=== PATIENT | female | born 1970 | race African-American/Black ===

== ENCOUNTER 2017-07-29 22:11 | Emergency (ER) | payer OTHER ==
[~2017-07-29 22:11] MED LIST: ACET325T11 PO; BISA10R PR; CALTTAB5 PO; CLEM2.68 PO; FOLI1TAB PO; LAMO25TA PO; LEVO.075 PO; LORA1TAB PO; MEDR150P IM; METO25 PO; OMEP20TA PO; OXCA300T2 PO; POLY119S PO; QUEN12.5 PO; TAB-TAB PO; [UNRECOGNIZED DRUG - CODE] PO
[2017-07-29 22:15] VITALS: PULSE 96; RESP 20; TEMP 97.5; O2SAT 98
--- NOTE | 2017-07-30 00:20 | PD ---
HPI Chief Complaint: Fall Time Seen by Provider: 00:01 Travel History International Travel<30 days: No Contact w/Intl Traveler<30days: No Traveled to known affect area: No History of Present Illness HPI The patient is a 47 year old female who presents to the [facility] emergency department with a history of falling prior to arrival at her [facility]. She fell and hit her head. She has a lump on her head related to the fall. She did not have a loss of consciousness. She has had no changes in her baseline of mentation. She is nonverbal with words, however she does make sounds. She uses a wheel chair for mobility and also walks with the assistance of a gait belt. Since the accident, the patient has not had any vomiting. Otherwise, according to the caregiver at the bedside the patient has not had any recent fevers, cough or congestion, shortness of breath, abdominal pain, diarrhea, new urinary symptoms, or new neurologic symptoms. She is not on any blood thinners. [facility] Past Medical History Narrative Medical The patient's past medical history is significant for profound mental retardation, microcephaly, mild ataxic diplegia, hypothyroid disorder, gingivitis, abnormal gait, allergic rhinitis, vitamin D deficiency, tachycardia , constipation, alopecia, anemia, dwarfism, partial complex seizures, anisocoria , anemia, anxiety, cataracts. Cardiovascular Problems: Yes (TACHYCARDIA) Neurologic: Yes (mental retardation, microcephaly, dwarfism) Seizures: Yes Thyroid Disease: Yes ?: Not Past Surgical History Surgical History: Unable to Obtain Social History Alcohol Use: No Tobacco Use: No Substance Use: No Allergies-Medications (Allergen,Severity, Reaction): Coded Allergies: Sulfa (Sulfonamide Antibiotics) (Unverified Allergy, Severe, 07/29/17) hydrochlorothiazide (Unverified Allergy, Severe, 07/29/17) Uncoded Allergies: LOOP DIURETICS (Allergy, Unknown, UNKNOWN, 07/29/17) Reported Meds & Prescriptions Reported Meds & Active Scripts Active Review of Systems ROS Limitations: Speech Impaired Except as stated in HPI: all other systems reviewed are Neg General / Constitutional: No: Fever HENT: No: Congestion Respiratory: No: Cough, Shortness of Breath Gastrointestinal: No: Nausea, Vomiting, Diarrhea Physical Exam Narrative General: The patient is a mentally disabled patient, intermittently verbal on examination that is repeatedly making the same sounds. Head and Neck exam: Head is normocephalic, no palpable evidence of trauma. The patient repeatedly grabs my hands during the examination. The patient has no scalp contusion palpated. No erythema or ecchymosis. Eyes: EOMI, pupils are equal round and reactive to light. Nose: Midline septum with pink mucous membranes Mouth: Dentition unremarkable. The patient has gingival hypertrophy. Moist mucus membranes. Posterior oropharynx is not erythematous. No tonsillar hypertrophy. Uvula midline. Airway patent. Neck: No palpable lymphadenopathy. No nuchal rigidity. No thyromegaly. Cardiovascular: Regular rate and rhythm without murmurs, gallops, or rubs. Lungs: Clear to auscultation bilaterally. No wheezes, rhonchi, or rales. Abdomen: Soft, without tenderness to palpation in all 4 quadrants of the abdomen. No guarding, rebound, or rigidity. Normal bowel sounds are audible. No tenderness on palpation of McBurney's point. Extremities: No clubbing, cyanosis, or edema. 2+ pulses in all 4 extremities. No bony tenderness on palpation along the upper and lower extremities. No crepitus or step-off on examination of her extremities. She has full range of motion without pain. No pelvic tenderness on palpation, no pelvic instability. Back: No spinous process tenderness to palpation. No step-off or crepitus. No costovertebral angle tenderness to palpation. Neurologic Exam: She is at her baseline of mentation, moving all extremities equally with 5 over 5 strength. The patient repeatedly makes noises, however otherwise she is nonverbal. She is not cooperative with formal neurologic testing. She has no facial asymmetry. The patient is at her baseline according to the caregiver at the bedside. Skin Exam: No rash noted. Intact skin that is warm and dry. Data Data Last Documented VS Vital Signs Date Time Temp Pulse Resp B/P (MAP) Pulse Ox O2 Delivery O2 Flow Rate FiO2 07/29/17 22:15 97.5 [address] Brain W/O Iv Contrast(Rout) (07/30/17 00:22) Ct Cerv Spine W/O Contrast (07/30/17 00:22) MDM Medical Decision Making Medical Screen Exam Complete: Yes Emergency Medical Condition: Yes Medical Record Reviewed: Yes Differential Diagnosis Skull fracture, versus concussion, versus intracranial hemorrhage Narrative Course During the course of the patients emergency department visit, the patients history, examination, and differential diagnosis were reviewed with the patient' s caregiver. A CT scan of the head and neck was ordered. The donor support technician attempted to take the patient to CT, however the patient was uncooperative, repeatedly moving. As the patient has no visible trauma instead of starting an IV and sedating the patient for imaging as it is low likelihood that the patient has any intracranial injury given the lack of injury noted on exam, the patient will be observed in the emergency department for any change in mentation or new symptoms. The patient was observed and had no vomiting. No change in her mentation or mental status at her baseline. The patient will be discharged home. The patient is resting comfortably and feels better, is alert and in no distress. The patients results and examination findings were discussed with the patient's caregiver. The repeat examination is unremarkable and benign. The history, exam, diagnostic testing, and current condition do not suggest any significant pathology to warrant further testing, continued ED treatment, admission, or surgical evaluation at this point. The vital signs have been stable. The patient does not have uncontrollable pain, intractable vomiting, or other significant symptoms. The patient's condition is stable and appropriate for discharge. The patient will pursue further outpatient evaluation with a primary care physician or other designated or consulting physician as indicated in the discharge instructions. The patient expressed understanding and was agreeable with this plan. Diagnosis Primary Impression: Head injury Qualified Codes: S09.90XA - Unspecified injury of head, initial encounter Referrals: Primary Care Physician 2 days Patient Instructions: General Instructions, Head Injury (ED) Med/Other Pt SpecificInfo: No Change to Meds Disposition: 03 DISCHARGE TO SNF Condition: Stable Cate Melara MD Jul 30, 2017 00:20
== END 2017-07-30 04:40 ==
LOC: NEPE 22:11
DX: S09.90XA Unspecified injury of head, initial encounter (principal); F73 Profound intellectual disabilities; R00.0 Tachycardia, unspecified; R56.9 Unspecified convulsions; D64.9 Anemia, unspecified; W01.0XXA Fall on same level from slipping, tripping and stumbling without subsequent striking against object, initial encounter; Y93.01 Activity, walking, marching and hiking; Y92.129 Unspecified place in nursing home as the place of occurrence of the external cause
CPT/HCPCS: 99285